=== PATIENT | male | born 1975 | race Caucasian/White ===

== ENCOUNTER 2017-07-07 16:09 | Emergency (ER) | payer OTHER ==
[2017-07-07 16:17] VITALS: BP 123/81; PULSE 76; RESP 16; TEMP 97.7; O2SAT 95
[2017-07-07] MEDS ORDERED: TDAP ADULT 0.5 ML INJ (BOOSTRIX) IM ONE (16:43)
--- NOTE | 2017-07-07 17:27 | EDPHY ---
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 He cut his palm with a utility knife. He reports initial pain. Bleeding was persistent. It is now controlled. He denies other associated signs or symptoms including no difficulty moving the digits of the hand or wrist , no abnormal coolness or paresthesias in the hand or digits. He is unsure of his last tetanus shot. - Personal History Current Tetanus/Diphtheria Vaccine: Unsure Current Tetanus Diphtheria and Acellular Pertussis (TDAP): Unsure - Medical/Surgical History Hx Asthma: No Hx Chronic Respiratory Disease: No Hx Diabetes: No Hx Cardiac Disease: No Hx Renal Disease: No Hx Cirrhosis: No Hx Alcoholism: No Hx HIV/AIDS: No Hx Splenectomy or Spleen Trauma: No - Social History Smoking Status: Never smoked - Physical Exam Exam: General: Alert, nontoxic Skin: 1 cm laceration to the proximal aspect of the right palm. It approximates well. Exploration does not reveal deep structure injury or foreign bodies. Musculoskeletal: Patient is flexing and extending all digits in all joints in all raymond without difficulty. Moving the wrist in all raymond without difficulty. Vascular: Capillary refill brisk in all digits of the right hand. Radial pulses 2+. Neurologic: Light touch sensation intact throughout the palm and digits of the hand. Two-point discrimination intact in all digits of the right hand. Constitutional: Initial Vital Signs Temperature (C) 36.5 C 07/07/17 16:14 Heart Rate 76 07/07/17 16:14 Respiratory Rate 16 07/07/17 16:14 Blood Pressure 123/81 H 07/07/17 16:14 O2 Sat (%) 95 07/07/17 16:14 O2 Delivery Mode Room Air Allergies/Adverse Reactions: No Known Allergies Allergy (Unverified 10/14/11 17:35) Home Medications: Medication Instructions Recorded ARIPiprazole [Abilify] 5 mg PO DAILY 10/14/11 LORazepam [Ativan] 1 mg PO HS PRN 10/14/11 lamoTRIgine [LamICTAL] 200 mg PO DAILY 10/14/11 Medical Decision Making Procedures: Procedure: Laceration repair. Verbal consent was obtained from the patient. The 1 cm laceration on the right palm was anesthetized in the usual fashion. The wound was irrigated, draped and explored to its base with a gloved finger. There were no deep structures involved. No tendon injury was identified. The wound was repaired with 5 0 Ethilon, 2 simple interrupted sutures. The wound repair was simple. The procedure was performed by myself. ED Course/Re-evaluation: Patient seen under the supervision of my secondary supervising physician Dr. Augustin Siegel. Patient presents to the emergency department for a right palm laceration. No evidence of deep structure involvement or foreign body contamination. The wound is cleaned, anesthetized, repaired and dressed. His tetanus is updated. He is discharged home. Home care is discussed. He is referred to a hand doctor for recheck. Return precautions are given. The patient voiced understanding and agreement with plan. Differential Diagnosis: Included but not limited to laceration, deep structure injury, foreign body contamination - Data Points Medications Given: Discontinued Medications Diphtheria/Tetanus/Acell Pertussis (Boostrix) 0.5 ml IM .ONCE ONE Stop: 07/07/17 16:44 Last Admin: 07/07/17 16:49 Dose: 0.5 ml Departure - Departure Disposition: Home, Routine, Self-Care Clinical Impression: Hand laceration Qualifiers: Encounter type: initial encounter Foreign body presence: without foreign body Laterality: right Qualified Code(s): S61.411A - Laceration without foreign body of right hand, initial encounter Condition: Good Instructions: Care For Your Stitches (ED), Laceration (ED), Acute Wounds (ED) Additional Instructions: Follow-up with a hand doctor for recheck next week Stitches to be removed in 7 days If symptoms worsen or new symptoms develop return to the emergency room for recheck Referrals: RIGOBERTO GAYLE [Primary Care Provider] - As per Instructions Emeka Hook MD [Medical Doctor] - As per Instructions
== END 2017-07-07 17:34 | disposition home or self-care (01) ==
PROC: 0HQFXZZ Repair Right Hand Skin, External Approach (ICD-10-PCS; principal; 2017-07-07)
DX: S61.411A Laceration without foreign body of right hand, initial encounter (principal); W26.0XXA Contact with knife, initial encounter; Y99.8 Other external cause status; Y93.89 Activity, other specified; Z23 Encounter for immunization